=== PATIENT | male | born 1990 | race Caucasian/White ===

== ENCOUNTER 2020-06-04 20:31 | Observation (INO) | payer BC, OTHER ==
[2020-06-04] MEDS ORDERED: Ondansetron 4 MG/2 ML SDV IVPUSH ONE (21:14)
[2020-06-04] MEDS ORDERED: Sodium Chloride 0.9% 1,000 ML IV ONE (21:14)
--- NOTE | 2020-06-04 22:36 | EDM.PDOC ---
ED HPI GENERAL MEDICAL PROBLEM - General Chief Complaint: Abdominal Pain Stated Complaint: RIGHT SIDE PAIN/VOMITING Time Seen by Provider: 06/04/20 22:20 Source of Information: Reports: Patient, Family (spouse) History Limitations: Reports: No Limitations - History of Present Illness INITIAL COMMENTS - FREE TEXT/NARRATIVE: 29-year-old male presents to the ED complaining of diffuse right lower quadrant abdominal pain which he is able to localize very well. He states he started noticing right lower quadrant abdominal pain about 1500 hrs. today while at work. He could not wait to get home as he was feeling quite nauseated and made himself vomit x3 after he got home in the hopes that this would provide some relief of the discomfort. However the pain is persisted. He did have some the need around 1500 hrs. I believe some chicken from a fast food restaurant. He reports that he vomited this up when he got home. Patient has no previous history of any abdominal surgery. His pain came on fairly abruptly and he does feel some degree of pain referred up into his right flank. He did have a bowel movement when he got home as well. It contained no blood. He provided no relief of the pain either. Present he reports his pain to be 4 5 at rest and 7 or 8 with movement ,coughing or riding in a vehicle. Onset: Today, Sudden Onset Date: 06/04/20 Onset Time: 15:00 Duration: Hour(s):, Getting Worse Location: Reports: Abdomen Quality: Reports: Ache (Right lower quadrant abdominal pain with no radiation. Some deep aching pain made worse by coughing laughing sneezing or) Severity: Moderate (riding in a motor vehicle. Walking also makes it worse. 7- 8 out of 10 with movement . Pain is rated at 3 at rest.) Improves with: Reports: Rest Worsens with: Reports: Other, Movement Context: Reports: Other (Gradual versus sudden onset at 1500 hrs.). Denies: Activity, Exercise (Laughing sneezing and laughing make the pain worse), Lifting, Sick Contact, Trauma Associated Symptoms: Reports: Loss of Appetite (Nausea and he forced himself to vomit x3 of bilious material and initially some food.), Malaise, Nausea/Vomiting Treatments [employer]: Reports: Other (see below) (None.) Right Lower Abdomen Pain Score (Numeric/FACES): 8 - Related Data Allergies Allergy/AdvReac Type Severity Reaction Status Date / Time No Known Allergies Allergy Verified 06/04/20 21:02 Home Meds: Home Meds Escitalopram Oxalate [Lexapro] 30 mg PO DAILY 06/04/20 [History] Venlafaxine [Effexor] 37.5 mg PO BEDTIME 06/04/20 [History] Past Medical History - Past Health History Medical/Surgical History: Denies Medical/Surgical History Social & Family History - Tobacco Use Smoking Status *Q: Never Smoker - Living Situation & Occupation Living situation: Reports: Occupation: Employed ED ROS GENERAL - Review of Systems Review Of Systems: See Below Constitutional: Reports: Fatigue (Today.). Denies: Fever, Chills HEENT: Reports: No Symptoms Respiratory: Reports: No Symptoms Cardiovascular: Reports: No Symptoms Endocrine: Reports: No Symptoms GI/Abdominal: Reports: No Symptoms, Abdominal Pain, Decreased Appetite, Nausea (Does not feel like eating any supper. In fact he is nauseated.), Vomiting (Vomiting of bilious material x3 once he got home about 79 hours from work.). Denies: Constipation, Diarrhea : Reports: No Symptoms Musculoskeletal: Reports: No Symptoms Skin: Reports: No Symptoms Neurological: Reports: No Symptoms Psychiatric: Reports: No Symptoms Hematologic/Lymphatic: Reports: No Symptoms Immunologic: Reports: No Symptoms ED EXAM, GI/ABD - Physical Exam Exam: See Below Exam Limited By: No Limitations General Appearance: Alert, WD/WN, No Apparent Distress, Other (Temperature is 36.4 although he feels slightly warmer. Pulse 88 and sinus respiratory is 18 with sats of 100% on room air BP 12/01/1977) Eyes: Bilateral: Normal Appearance (No scleral icterus or blepharal pallor.) Throat/Mouth: Normal Inspection, Normal Lips, Normal Oropharynx Head: Atraumatic, Normocephalic Neck: Normal Inspection, Supple, Non-Tender, Full Range of Motion. No: Carotid Bruit, Lymphadenopathy (L), Lymphadenopathy (R), Thyromegaly Respiratory/Chest: No Respiratory Distress, Lungs Clear, Normal Breath Sounds, No Accessory Muscle Use Cardiovascular: Normal Peripheral Pulses, Regular Rate, Rhythm, No Edema, No Gallop, No Murmur, No Rub GI/Abdominal Exam: Normal Bowel Sounds, No Abnormal Bruit, No Mass (Lower quadrant of the abdomen), Pelvis Stable, Guarding, Rebound (Right lower quadrant rebound tenderness right lower quadrant with positive Rovsing sign and obturator sign.), Tender, Other (Male) Exam: No Hernia (Is consistent with acute appendicitis) Back Exam: Normal Inspection, Full Range of Motion. No: CVA Tenderness (L), CVA Tenderness (R) Extremities: Normal Inspection, Normal Range of Motion, Non-Tender, No Pedal Edema Neurological: Alert, Oriented, CN II-XII Intact, Normal Cognition Psychiatric: Normal Affect, Normal Mood Skin Exam: Warm, Dry, Intact, Normal Color, No Rash Course - Vital Signs Last Recorded V/S: Last Vital Signs Temp 36.4 C 06/04/20 21:03 Pulse 88 06/04/20 21:03 Resp 18 06/04/20 21:03 BP 125/78 06/04/20 21:03 Pulse Ox 100 06/04/20 21:03 - Orders/Labs/Meds Orders: Active Orders 24 hr Category Date Time Status Abdomen Pelvis w Cont [CT] Stat Exams 06/04/20 22:31 Taken Medication Orders Hydromorphone HCl (Dilaudid) 0.5 mg IVPUSH Q2H PRN PRN Reason: Pain Lactated Ringer's (Ringers, Lactated) 1,000 mls @ 125 mls/hr IV ASDIRECTED [facility] Last Admin: 06/05/20 01:44 Dose: 125 mls/hr Documented by: MARIANNE Metoclopramide HCl (Reglan) 10 mg IVPUSH Q6H PRN PRN Reason: Nausea Labs: Laboratory Tests 06/04/20 06/04/20 Range/Units 21:00 21:00 WBC 15.86 H (4.23-9.07) K/mm3 RBC 5.06 (4.63-6.08) M/mm3 Hgb 15.4 (13.7-17.5) gm/dl Hct 42.9 (40.1-51.0) % MCV 84.8 (79.0-92.2) fl MCH 30.4 (25.7-32.2) pg MCHC 35.9 H (32.2-35.5) g/dl RDW Std Deviation 37.1 (35.1-43.9) fL Plt Count 234 (163-337) K/mm3 MPV 10.4 (9.4-12.3) fl Neut % (Auto) 87.7 H (34.0-67.9) % Lymph % (Auto) 6.1 L (21.8-53.1) % [place] % (Auto) 5.7 (5.3-12.2) % Eos % (Auto) 0.3 L (0.8-7.0) Baso % (Auto) 0.1 (0.1-1.2) % Neut # (Auto) 13.91 H (1.78-5.38) K/mm3 Lymph # (Auto) 0.96 L (1.32-3.57) K/mm3 [place] # (Auto) 0.90 H (0.30-0.82) K/mm3 Eos # (Auto) 0.05 (0.04-0.54) K/mm3 Baso # (Auto) 0.02 (0.01-0.08) K/mm3 Manual Slide Review Abnormal smear Sodium 141 (136-145) mEq/L Potassium 3.9 (3.5-5.1) mEq/L Chloride 102 (98-107) mEq/L Carbon Dioxide 25 (21-32) mEq/L Anion Gap 17.9 H (5-15) BUN 20 H (7-18) mg/dL Creatinine 1.3 (0.7-1.3) mg/dL Est Cr Clr Drug Dosing 85.01 mL/min Estimated GFR (MDRD) > 60 (>60) mL/min BUN/Creatinine Ratio 15.4 (14-18) Glucose 105 (74-106) mg/dL Calcium 9.3 (8.5-10.1) mg/dL Total Bilirubin 0.9 (0.2-1.0) mg/dL AST 26 (15-37) U/L ALT 30 (16-63) U/L Alkaline Phosphatase 78 (46-116) U/L Total Protein 7.9 (6.4-8.2) g/dl Albumin 4.7 (3.4-5.0) g/dl Globulin 3.2 gm/dL Albumin/Globulin Ratio 1.5 (1-2) Meds: Medications Generic Name Dose Route Start Last Admin Trade Name Freq PRN Reason Stop Dose Admin Hydromorphone HCl 0.5 mg 06/05/20 01:33 Dilaudid IVPUSH Q2H PRN Pain Lactated Ringer's 1,000 mls @ 125 mls/hr 06/05/20 01:30 06/05/20 01:44 Ringers, Lactated IV 125 mls/hr ASDIRECTED PANDA Administration Metoclopramide HCl 10 mg 06/05/20 01:29 Reglan IVPUSH Q6H PRN Nausea Discontinued Medications Generic Name Dose Route Start Last Admin Trade Name Freq PRN Reason Stop Dose Admin Diphenhydramine HCl 25 mg 06/05/20 00:01 06/05/20 00:19 Benadryl IVPUSH 06/05/20 00:02 25 mg ONETIME ONE Administration Hydromorphone HCl 0.5 mg 06/04/20 22:37 06/04/20 23:05 Dilaudid IVPUSH 06/04/20 22:38 0.5 mg ONETIME ONE Administration Hydromorphone HCl 0.5 mg 06/05/20 00:01 06/05/20 00:20 Dilaudid IVPUSH 06/05/20 00:02 0.5 mg ONETIME ONE Administration Sodium Chloride 1,000 mls @ 999 mls/hr 06/04/20 21:14 06/04/20 21:24 Normal Saline IV 06/04/20 22:14 999 mls/hr ONETIME ONE Administration Lactated Ringer's 1,000 mls @ 500 mls/hr 06/04/20 22:45 06/04/20 23:11 Ringers, Lactated IV 500 mls/hr .BOLUS PANDA Administration Lactated Ringer's 1,000 mls @ 150 mls/hr 06/04/20 22:45 Ringers, Lactated IV ASDIRECTED PANDA Ertapenem 1 gm/ Sodium 50 mls @ 100 mls/hr 06/04/20 23:01 06/04/20 23:19 Chloride IV 06/04/20 23:30 100 mls/hr ONETIME ONE Administration Metoclopramide HCl 7.5 mg 06/05/20 00:01 06/05/20 00:18 Reglan IVPUSH 06/05/20 00:02 7.5 mg ONETIME ONE Administration Ondansetron HCl 4 mg 06/04/20 21:14 06/04/20 21:23 Zofran IVPUSH 06/04/20 21:15 4 mg ONETIME ONE Administration - Radiology Interpretation Free Text/Narrative:: 29-year-old male presents to the ED with acute onset of right lower quadrant abdominal pain gradually worsening since 1500 hrs. today. About 5:00 when he got home he started vomiting and vomited x3 of bilious emesis. He states he made himself vomit as he thought he would feel better. He has had some fever and some chills tonight as well. He did have 1 normal stool when he got home from work. Patient appreciates that it hurts to take a deep breath when sitt ing. Not noted when lying. He is able to localize the pain very well to his right lower quadrant. Minimal referral to his back. No history of renal colic. On examination he has bowel sounds still present normal. He has guarding in the right lower quadrant and has acute peritonitis clinically with a positive Rovsing sign and a positive obturator sign. Niccoli patient has acute appendicitis. Plan routine labs. IV will be normal saline at open. Then changed to LR at 150 mils per hour. Patient is received Zofran 4 mg IV for nausea relief. Currently rates his pain is 1-2 out of 10. - Re-Assessments/Exams Free Text/Narrative Re-Assessment/Exam: 06/04/20 22:34 White cell count is elevated at 15.86 with a left shift of 87.7% neutrophils on the auto differential. Hemoglobin is 15.4 with hematocrit of 42.9. MCV is normal at 84.8. Platelet counts 234,000. Slide reveals neutrophilia with lymphopenia and no bands cells. Sodium 141 with a potassium of 3.9. Chloride 102 with a bicarb of 25. Anion gap is mildly elevated at 17.9. BUN is 20 with a creatinine of 1.3. GFR is greater than 60. Glucose 105 with a calcium of 9.3. Liver function is normal. Total protein is 7.9 with an albumin fraction of 4.7. Patient will go to CT for CT of the abdomen with IV contrast only. Clinically he has acute appendicitis. 06/04/20 : 23:30: CT of the abdomen with IV contrast only has been completed. It reveals acute appendicitis with enlarged appendix dilated up to 12 mm and mild periappendiceal infiltrate. Vrad for read of the CT agrees with my assessment. Discussed the case with Dr. Braun on-call surgeon and he would like the patient admitted per observation status with plan to take him to the OR around 0600 hrs. a.m. This plan was discussed with the patient and his . I will be to give him Invanz 1 g IV now. Dilaudid 0.5 mg IV for abdominal pain. He is improved at this time after the Zofran given initially. 06/05/20 00:02 Patient is complaining of a bad headache compatible with his previous migraines. Plan will give him Reglan 7.5 mg IV with Benadryl 25 mg IV to prevent any dystonic reaction from interaction with venlafaxine and Zofran given earlier in the evening. Repeat Dilaudid 0.5 mg IV as well. Patient will be admitted shortly to the [facility] floor for observation status per Dr. Braun. Plan is to take him to the operating room around 0600 hrs. June 05 for laparoscopic appendectomy. Departure - Departure Time of Disposition: 00:01 Disposition: Refer to Observation Condition: Fair Clinical Impression: Right lower quadrant abdominal pain Acute appendicitis Qualifiers: Acute appendicitis type: with localized peritonitis Appendicitis gangrene presence: without gangrene Appendicitis perforation presence: without perforation Appendicitis abscess presence: without abscess Qualified Code(s): K35.30 - Acute appendicitis with localized peritonitis, without perforation or gangrene - Discharge Information *PRESCRIPTION DRUG MONITORING PROGRAM REVIEWED*: Not Applicable *COPY OF PRESCRIPTION DRUG MONITORING REPORT IN PATIENT CARISSA: Not Applicable Sepsis Event Note (ED) - Evaluation Sepsis Screening Result: No Definite Risk - Focused Exam Vital Signs: Vital Signs Temp Pulse Resp BP Pulse Ox 06/04/20 21:03 36.4 C 88 18 125/78 100 - My Orders Last 24 Hours: My Active Orders 06/04/20 22:31 Abdomen Pelvis w Cont [CT] Stat - Assessment/Plan Last 24 Hours: My Active Orders 06/04/20 22:31 Abdomen Pelvis w Cont [CT] Stat
[2020-06-04] MEDS ORDERED: HYDROmorphone 0.5 MG/0.5 ML Syringe IVPUSH ONE (22:37)
[2020-06-04] MEDS ORDERED: Lactated Ringers 1,000 ML IV SCH ×2 (22:45)
[2020-06-04] MEDS ORDERED: Ertapenem 1 GM in Sodium Chloride 0.9% 50 ML IV ONE (23:01)
[2020-06-05] MEDS ORDERED: diphenhydrAMINE 50 MG/ML SDV IVPUSH ONE (00:01)
[2020-06-05] MEDS ORDERED: HYDROmorphone 0.5 MG/0.5 ML Syringe IVPUSH ONE (00:01)
[2020-06-05] MEDS ORDERED: Metoclopramide 10 MG/2 ML SDV IVPUSH ONE (00:01)
[2020-06-05] MEDS ORDERED: Metoclopramide 10 MG/2 ML SDV IVPUSH PRN (01:29)
[2020-06-05] MEDS ORDERED: Lactated Ringers 1,000 ML IV SCH (01:30)
[2020-06-05] MEDS ORDERED: HYDROmorphone 0.5 MG/0.5 ML Syringe IVPUSH PRN ×2 (01:33→07:12)
--- NOTE | 2020-06-05 05:55 | PCM.PREANE ---
Preanesthetic Assessment - Procedure Proposed Procedure: Laparoscopic appendectomy - Anesthesia/Transfusion/Family Hx Anesthesia History: Prior Anesthesia Without Reaction Transfusion History: No Prior Transfusion(s) - Review of Systems General: No Symptoms Pulmonary: No Symptoms Cardiovascular: No Symptoms Gastrointestinal: No Symptoms Neurological: No Symptoms Other: Reports: Anxiety - Physical Assessment NPO Status Date: 06/04/20 NPO Status Time: 15:00 Vital Signs: Last Vital Signs Temp 97.5 F 06/04/20 21:03 Pulse 88 06/04/20 21:03 Resp 18 06/04/20 21:03 BP 125/78 06/04/20 21:03 Pulse Ox 100 06/04/20 21:03 Height: 1.78 m Weight: 84.776 kg ASA Class: 1E Mental Status: Alert & Oriented x3 Airway Class: Mallampati = 2 Dentition: Reports: Normal Dentition Thyro-Mental Finger Breadths: 3 Mouth Opening Finger Breadths: 3 ROM/Head Extension: Full Lungs: Clear to Auscultation, Normal Respiratory Effort Cardiovascular: Regular Rate, Regular Rhythm - Lab Values: Laboratory Last Values WBC 15.86 K/mm3 (4.23-9.07) H 06/04/20 21:00 RBC 5.06 M/mm3 (4.63-6.08) 06/04/20 21:00 Hgb 15.4 gm/dl (13.7-17.5) 06/04/20 21:00 Hct 42.9 % (40.1-51.0) 06/04/20 21:00 MCV 84.8 fl (79.0-92.2) 06/04/20 21:00 MCH 30.4 pg (25.7-32.2) 06/04/20 21:00 MCHC 35.9 g/dl (32.2-35.5) H 06/04/20 21:00 RDW Std Deviation 37.1 fL (35.1-43.9) 06/04/20 21:00 Plt Count 234 K/mm3 (163-337) 06/04/20 21:00 MPV 10.4 fl (9.4-12.3) 06/04/20 21:00 Neut % (Auto) 87.7 % (34.0-67.9) H 06/04/20 21:00 Lymph % (Auto) 6.1 % (21.8-53.1) L 06/04/20 21:00 [place] % (Auto) 5.7 % (5.3-12.2) 06/04/20 21:00 Eos % (Auto) 0.3 (0.8-7.0) L 06/04/20 21:00 Baso % (Auto) 0.1 % (0.1-1.2) 06/04/20 21:00 Neut # (Auto) 13.91 K/mm3 (1.78-5.38) H 06/04/20 21:00 Lymph # (Auto) 0.96 K/mm3 (1.32-3.57) L 06/04/20 21:00 [place] # (Auto) 0.90 K/mm3 (0.30-0.82) H 06/04/20 21:00 Eos # (Auto) 0.05 K/mm3 (0.04-0.54) 06/04/20 21:00 Baso # (Auto) 0.02 K/mm3 (0.01-0.08) 06/04/20 21:00 Manual Slide Review Abnormal smear 06/04/20 21:00 Sodium 141 mEq/L (136-145) 06/04/20 21:00 Potassium 3.9 mEq/L (3.5-5.1) 06/04/20 21:00 Chloride 102 mEq/L (98-107) 06/04/20 21:00 Carbon Dioxide 25 mEq/L (21-32) 06/04/20 21:00 Anion Gap 17.9 (5-15) H 06/04/20 21:00 BUN 20 mg/dL (7-18) H 06/04/20 21:00 Creatinine 1.3 mg/dL (0.7-1.3) 06/04/20 21:00 Est Cr Clr Drug Dosing 85.01 mL/min 06/04/20 21:00 Estimated GFR (MDRD) > 60 mL/min (>60) 06/04/20 21:00 BUN/Creatinine Ratio 15.4 (14-18) 06/04/20 21:00 Glucose 105 mg/dL (74-106) 06/04/20 21:00 Calcium 9.3 mg/dL (8.5-10.1) 07/29/20 21:00 Total Bilirubin 0.9 mg/dL (0.2-1.0) 06/04/20 21:00 AST 26 U/L (15-37) 06/04/20 21:00 ALT 30 U/L (16-63) 06/04/20 21:00 Alkaline Phosphatase 78 U/L (46-116) 06/04/20 21:00 Total Protein 7.9 g/dl (6.4-8.2) 06/04/20 21:00 Albumin 4.7 g/dl (3.4-5.0) 06/04/20 21:00 Globulin 3.2 gm/dL 06/04/20 21:00 Albumin/Globulin Ratio 1.5 (1-2) 06/04/20 21:00 SARS Virus RNA (PCR) Negative (NEGATIVE) 06/04/20 23:30 - Allergies Allergies/Adverse Reactions: Allergies Allergy/AdvReac Type Severity Reaction Status Date / Time No Known Allergies Allergy Verified 06/04/20 21:02 - Acknowledgements Anesthesia Type Planned: General Anesthesia Pt an Appropriate Candidate for the Planned Anesthesia: Yes Alternatives and Risks of Anesthesia Discussed w Pt/Guardian: Yes Pt/Guardian Understands and Agrees with Anesthesia Plan: Yes PreAnesthesia Questionnaire - Past Health History Medical/Surgical History: Denies Medical/Surgical History HEENT History: Reports: Impaired Vision Neurological History: Reports: Migraines Psychiatric History: Reports: Anxiety - Infectious Disease History Infectious Disease History: Reports: Chicken Pox, Influenza - Past Surgical History HEENT Surgical History: Reports: None Neurological Surgical History: Reports: None - SUBSTANCE USE Smoking Status *Q: Never Smoker Second Hand Smoke Exposure: No Recreational Drug Use History: No - HOME MEDS Home Medications: Home Meds Escitalopram Oxalate [Lexapro] 30 mg PO DAILY 06/04/20 [History] Venlafaxine [Effexor] 37.5 mg PO BEDTIME 06/04/20 [History] - CURRENT (IN HOUSE) MEDS Current Meds: Current Medications Hydromorphone HCl (Dilaudid) 0.5 mg IVPUSH Q2H PRN PRN Reason: Pain Lactated Ringer's (Ringers, Lactated) 1,000 mls @ 125 mls/hr IV ASDIRECTED PANDA Last Admin: 06/05/20 01:44 Dose: 125 mls/hr Documented by: Metoclopramide HCl (Reglan) 10 mg IVPUSH Q6H PRN PRN Reason: Nausea Discontinued Medications Diphenhydramine HCl (Benadryl) 25 mg IVPUSH ONETIME ONE Stop: 06/05/20 00:02 Last Admin: 06/05/20 00:19 Dose: 25 mg Documented by: Hydromorphone HCl (Dilaudid) 0.5 mg IVPUSH ONETIME ONE Stop: 06/04/20 22:38 Last Admin: 06/04/20 23:05 Dose: 0.5 mg Documented by: Hydromorphone HCl (Dilaudid) 0.5 mg IVPUSH ONETIME ONE Stop: 06/05/20 00:02 Last Admin: 06/05/20 00:20 Dose: 0.5 mg Documented by: Sodium Chloride (Normal Saline) 1,000 mls @ 999 mls/hr IV ONETIME ONE Stop: 06/04/20 22:14 Last Admin: 06/04/20 21:24 Dose: 999 mls/hr Documented by: Lactated Ringer's (Ringers, Lactated) 1,000 mls @ 500 mls/hr IV .BOLUS PANDA Last Admin: 06/04/20 23:11 Dose: 500 mls/hr Documented by: Lactated Ringer's (Ringers, Lactated) 1,000 mls @ 150 mls/hr IV ASDIRECTED PANDA Ertapenem 1 gm/ Sodium (Chloride) 50 mls @ 100 mls/hr IV ONETIME ONE Stop: 06/04/20 23:30 Last Admin: 06/04/20 23:19 Dose: 100 mls/hr Documented by: Metoclopramide HCl (Reglan) 7.5 mg IVPUSH ONETIME ONE Stop: 06/05/20 00:02 Last Admin: 06/05/20 00:18 Dose: 7.5 mg Documented by: Ondansetron HCl (Zofran) 4 mg IVPUSH ONETIME ONE Stop: 06/04/20 21:15 Last Admin: 06/04/20 21:23 Dose: 4 mg Documented by:
--- NOTE | 2020-06-05 06:05 | PCM.HP.2 ---
H&P History of Present Illness - General Date of Service: 06/05/20 Admit Problem/Dx: Admission Diagnosis/Problem Admission Diagnosis/Problem Appendicitis Source of Information: Patient History Limitations: Reports: No Limitations - History of Present Illness Initial Comments - Free Text/Narative: Patient started having RLQ pain yesterday afternoon as he was driving back from work. Pain located in the RLQ, non-radiating. associated with nausea and vomiting. He vomited his lung around 3 pm. No fevers or chills. In the ED wbc was 15, CT confirmed acute appendicitis. Onset of Symptoms: Reports: Sudden Duration of Symptoms: Reports: Hour(s): (16), Getting Worse Location: Reports: Abdomen (RLQ) Quality: Reports: Sharp Severity: Moderate Improves with: Reports: Immobilization Worsens with: Reports: Movement Associated Symptoms: Reports: Nausea/Vomiting Right Lower Abdomen Pain Score (Numeric/FACES): 8 - Related Data Allergies/Adverse Reactions: Allergies Allergy/AdvReac Type Severity Reaction Status Date / Time No Known Allergies Allergy Verified 06/04/20 21:02 Home Medications: Home Meds Escitalopram Oxalate [Lexapro] 30 mg PO DAILY 06/04/20 [History] Venlafaxine [Effexor] 37.5 mg PO BEDTIME 06/04/20 [History] Past Medical History - Past Health History Medical/Surgical History: Denies Medical/Surgical History HEENT History: Reports: Impaired Vision Neurological History: Reports: Migraines Psychiatric History: Reports: Anxiety - Infectious Disease History Infectious Disease History: Reports: Chicken Pox, Influenza - Past Surgical History HEENT Surgical History: Reports: None Neurological Surgical History: Reports: None Social & Family History - Tobacco Use Smoking Status *Q: Never Smoker Second Hand Smoke Exposure: No - Caffeine Use Caffeine Use: Reports: Energy Drinks - Recreational Drug Use Recreational Drug Use: No - Living Situation & Occupation Living situation: Reports: Occupation: Employed H&P Review of Systems - Review of Systems: Review Of Systems: See Below General: Reports: No Symptoms HEENT: Reports: No Symptoms Pulmonary: Reports: No Symptoms Cardiovascular: Reports: No Symptoms Gastrointestinal: Reports: Abdominal Pain Genitourinary: Reports: No Symptoms Musculoskeletal: Reports: No Symptoms Skin: Reports: No Symptoms Psychiatric: Reports: No Symptoms Exam - Exam Exam: See Below - Vital Signs Vital Signs: Last Vital Signs Temp 97.5 F 06/04/20 21:03 Pulse 88 06/04/20 21:03 Resp 18 06/04/20 21:03 BP 125/78 06/04/20 21:03 Pulse Ox 100 06/04/20 21:03 Weight: 84.776 kg - Exam General: Alert, Oriented, Cooperative Cardiovascular: Regular Rate, Regular Rhythm, Normal S1, Normal S2 GI/Abdominal Exam: Soft, No Organomegaly, No Distention, No Mass, Tender (RLQ) - Patient Data Lab Results Last 24 hrs: Laboratory Results - last 24 hr 06/04/20 06/04/20 06/04/20 Range/Units 21:00 21:00 23:30 WBC 15.86 H (4.23-9.07) K/mm3 RBC 5.06 (4.63-6.08) M/mm3 Hgb 15.4 (13.7-17.5) gm/dl Hct 42.9 (40.1-51.0) % MCV 84.8 (79.0-92.2) fl MCH 30.4 (25.7-32.2) pg MCHC 35.9 H (32.2-35.5) g/dl RDW Std Deviation 37.1 (35.1-43.9) fL Plt Count 234 (163-337) K/mm3 MPV 10.4 (9.4-12.3) fl Neut % (Auto) 87.7 H (34.0-67.9) % Lymph % (Auto) 6.1 L (21.8-53.1) % [place] % (Auto) 5.7 (5.3-12.2) % Eos % (Auto) 0.3 L (0.8-7.0) Baso % (Auto) 0.1 (0.1-1.2) % Neut # (Auto) 13.91 H (1.78-5.38) K/mm3 Lymph # (Auto) 0.96 L (1.32-3.57) K/mm3 Barnwell # (Auto) 0.90 H (0.30-0.82) K/mm3 Eos # (Auto) 0.05 (0.04-0.54) K/mm3 Baso # (Auto) 0.02 (0.01-0.08) K/mm3 Manual Slide Review Abnormal smear Sodium 141 (136-145) mEq/L Potassium 3.9 (3.5-5.1) mEq/L Chloride 102 (98-107) mEq/L Carbon Dioxide 25 (21-32) mEq/L Anion Gap 17.9 H (5-15) BUN 20 H (7-18) mg/dL Creatinine 1.3 (0.7-1.3) mg/dL Est Cr Clr Drug Dosing 85.01 mL/min Estimated GFR (MDRD) > 60 (>60) mL/min BUN/Creatinine Ratio 15.4 (14-18) Glucose 105 (74-106) mg/dL Calcium 9.3 (8.5-10.1) mg/dL Total Bilirubin 0.9 (0.2-1.0) mg/dL AST 26 (15-37) U/L ALT 30 (16-63) U/L Alkaline Phosphatase 78 (46-116) U/L Total Protein 7.9 (6.4-8.2) g/dl Albumin 4.7 (3.4-5.0) g/dl Globulin 3.2 gm/dL Albumin/Globulin Ratio 1.5 (1-2) SARS Virus RNA (PCR) Negative (NEGATIVE) Result Diagrams: 06/04/20 21:00 06/04/20 21:00 Sepsis Event Note - Evaluation Sepsis Screening Result: No Definite Risk - Focused Exam Vital Signs: Vital Signs Temp Pulse Resp BP Pulse Ox 06/04/20 21:03 97.5 F 88 18 125/78 100 Date Exam was Performed: 06/05/20 Time Exam was Performed: 06:00 Problem List Initiated/Reviewed/Updated: No Orders Last 24hrs: Active Orders 24 hr Category Date Time Status Patient Status [ADT] Routine ADT 06/04/20 23:21 Active Up ad Shireen [RC] ASDIRECTED Care 06/05/20 01:22 Active NPO Now [Nothing per Oral Now Diet] [DIET] Diet 06/05/20 Breakfast Active Abdomen Pelvis w Cont [CT] Stat Exams 06/04/20 22:31 Taken HYDROmorphone [Dilaudid] Med 06/05/20 01:33 Active 0.5 mg IVPUSH Q2H PRN Lactated Ringers [Ringers, Lactated] 1,000 ml Med 06/05/20 01:30 Active IV ASDIRECTED Metoclopramide [Reglan] Med 06/05/20 01:29 Active 10 mg IVPUSH Q6H PRN Schedule Procedure [COMM] Timed Oth 06/05/20 04:50 Ordered Code Status [Resuscitation Status] Routine Resus Stat 06/05/20 01:12 Ordered Medication Orders Hydromorphone HCl (Dilaudid) 0.5 mg IVPUSH Q2H PRN PRN Reason: Pain Lactated Ringer's (Ringers, Lactated) 1,000 mls @ 125 mls/hr IV ASDIRECTED PANDA Last Admin: 06/05/20 01:44 Dose: 125 mls/hr Documented by: MARIANNE Metoclopramide HCl (Reglan) 10 mg IVPUSH Q6H PRN PRN Reason: Nausea Assessment/Plan Comment:: Patient has acute appendicitis. I recommended we pursue appendectomy. Patient agreed. I discussed with his risks, benefits and alternatives. Risks discussed included infection, bleeding, injury to adjacent structures. Questions were answered and informed consent was obtained. - Lap appy now - extended recovery post op - can go home once tolerating clears - follow up in 2 weeks post op
[2020-06-05] MEDS ORDERED: Rocuronium 50 MG/5 ML Vial ONE (06:10)
[2020-06-05] MEDS ORDERED: Propofol 200 MG/20 ML SDV ONE (06:11)
[2020-06-05] MEDS ORDERED: fentaNYL 250 MCG/5 ML SDV ONE (06:12)
[2020-06-05] MEDS ORDERED: Midazolam 1 MG/ML 2 ML SDV ONE (06:12)
[2020-06-05] MEDS ORDERED: Lidocaine 1% 4 ML ONE (06:12)
[2020-06-05] MEDS ORDERED: Lidocaine 1% 50 ML MDV ONE (06:20)
[2020-06-05] MEDS ORDERED: Succinylcholine/Sod PF 100 MG/5 ML SYRINGE IV ONE (06:21)
[2020-06-05] MEDS ORDERED: Atropine 0.4 MG/ML SDV ONE (07:02)
[2020-06-05] MEDS ORDERED: fentaNYL 100 MCG/2 ML SDV IVPUSH PRN (07:12)
[2020-06-05] MEDS ORDERED: Ondansetron 4 MG/2 ML SDV ONE (07:13)
[2020-06-05] MEDS ORDERED: HYDROmorphone 0.5 MG/0.5 ML Syringe ONE (07:16)
[2020-06-05] MEDS ORDERED: Lactated Ringers 1,000 ML ONE (07:48)
[2020-06-05] MEDS ORDERED: Ketorolac 30 MG/ML SDV IVPUSH ONE (07:53)
--- NOTE | 2020-06-05 07:58 | PCM.POSTAN ---
POST ANESTHESIA ASSESSMENT - MENTAL STATUS Mental Status: Alert, Oriented - VITAL SIGNS Vital Signs: Last Vital Signs Temp 97.4 F 06/05/20 07:40 Pulse 90 06/05/20 07:40 Resp 18 06/05/20 07:40 BP 120/67 06/05/20 07:40 Pulse Ox 97 06/05/20 07:40 - RESPIRATORY Respiratory Status: Respiratory Rate WNL, Airway Patent, O2 Saturation Stable, Supplemental Oxygen - CARDIOVASCULAR CV Status: Pulse Rate WNL, Blood Pressure Stable - GASTROINTESTINAL GI Status: No Symptoms - PAIN Pain Score: 3 - POST OP HYDRATION Hydration Status: Adequate & Stable
--- NOTE | 2020-06-05 08:56 | OR ---
DATE OF OPERATION: 06/05/2020 SURGEON: Jimena Braun MD PREOPERATIVE DIAGNOSIS: Acute appendicitis. POSTOPERATIVE DIAGNOSIS: Acute appendicitis. OPERATION PERFORMED: Laparoscopic appendectomy. ANESTHESIA: General endotracheal. IMMEDIATE COMPLICATIONS: None. ESTIMATED BLOOD LOSS: 20 mL. INDICATION AND CONSENT: The patient is a 29-year-old male who started having right lower quadrant pain yesterday afternoon as he was driving home from work. This was associated with nausea and vomiting. The patient presented to the emergency department due to worsening pain last night. White count was 15. CT scan confirmed acute appendicitis. I was asked to see the patient. On my exam, he had right lower quadrant pain, and I reviewed the CT and imaging and confirmed the diagnosis. I offered the patient laparoscopic appendectomy, possible open. We discussed risks, benefits, and alternatives. The patient agreed to proceed with the procedure and informed consent was obtained. DESCRIPTION OF PROCEDURE: The patient was taken to the operating room, placed in supine position, and padded well. The patient had already received preop antibiotics in the emergency department. Therefore, none was needed. General anesthesia was induced, and the patient's abdomen was prepped and draped in the usual sterile fashion. Formal time-out was performed prior to the start of the procedure. We began the procedure by injecting local anesthetic in the infraumbilical position. Incision was made. Then, while retracting the umbilical stalk, Veress needle was introduced into the abdomen. The abdomen was insufflated to 15 mmHg. A 12 Optiview trocar was introduced into the abdomen under direct visualization with a 5 scope. Abdomen was inspected. There was no injury from the Veress needle or trocar insertion. Two additional 5 mm trocars were placed under direct visualization, one in the left lower quadrant, another one in the suprapubic position. The patient was placed in the slight Trendelenburg in left- sided down position and we began the procedure. We found the appendix in the right lower quadrant. Distal 2/3 of the appendix was visibly inflamed and the appendix was retracted anteriorly. A window in the appendiceal base was made and the appendix was transected with a 55 mm blue load Endo-LUCY stapler. Then, the mesoappendix was transected with a vascular white load using Endo-LUCY stapler. There was immediate bleeding from mesoappendix that was pulsatile. This was controlled with 2 clips. There was about 10 to 20 mL of blood that was in the right lower quadrant. This was suctioned out using a suction cnc grinder device. Once this was done, the appendix was placed into the EndoCatch bag, removed through the infraumbilical port, and the abdomen was reinspected. There were no other injuries. Bleeding was completely stopped. The infraumbilical incision was closed at the fascial level with 0 Vicryl stitch using Tristin-William device. Then, skin at all 3 incisions was closed with 4-0 Monocryl stitches and Dermabond was applied. This marked the end of the procedure. At the end of the procedure, all instruments, sharps, and sponges were counted and found to be correct x2. The patient was awoken from general anesthesia and taken to the recovery area in stable condition. MMANASTASIIA /[id number] AMEYA
--- NOTE | 2020-06-05 09:26 | CT ---
CT abdomen and pelvis Technique: Multiple axial sections were obtained from above the dome of the diaphragm inferiorly through the pubic symphysis. Intravenous contrast was utilized. No oral contrast has been given. Delayed images were obtained through the bladder. Comparison:4 no prior abdominal imaging is available. Findings: Visualized lung bases show nothing acute. Liver contains no focal parenchymal abnormality. Spleen appears within normal limits. Adrenal glands show no nodule. Kidneys show symmetric contrast enhancement. No hydronephrosis or mass is seen. Pancreas appears normal. Gallbladder contains no calcified gallstones. Aorta shows no aneurysm. No retroperitoneal adenopathy or mesenteric abnormalities are seen. Appendix is seen which shows mild wall thickening and minimal surrounding inflammatory change. Findings are suspicious for early appendicitis. No additional pelvic mass or adenopathy is seen. No free fluid is seen. No other inflammatory change is appreciated. Delayed images shows contrast within the distal ureters as well as within the bladder. Bone window settings were reviewed. No acute osseous finding is appreciated. 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 Impression: 1. Findings suspicious for early appendicitis. 2. No other acute abnormality is identified on CT study of the abdomen and pelvis. Diagnostic code #5 This report was dictated in MDT I agree with preliminary report from [facility], finalized on 06/05/20, 12:04 AM Central Daylight Time
[2020-06-05] MEDS ORDERED: Acetaminophen 325 MG Tab PO PRN (10:42)
--- NOTE | 2020-06-10 09:34 | PCM.DCSUM1 ---
Discharge Summary - Hospital Course Free Text/Narrative:: patient had acute appendicitis. He underwent laparoscopic appendectomy. Was discharged in stable condition. Diagnosis: Stroke: No - Discharge Data Discharge Date: 06/05/20 Discharge Disposition: Home, Self-Care 01 Condition: Good - Referral to Home Health Primary Care Physician: Ayaz Sprague Jr, MD - Patient Instructions Diet: Heart Healthy Diet Activity: No Lifting Over 20 Pounds Driving: Do Not Drive Showering/Bathing: May Shower Wound/Incision Care: Keep Operative Site/Wound Site Clean and Dry Notify Provider of: Fever, Increased Pain, Swelling and Redness, Drainage, Nausea and/or Vomiting Other/Special Instructions: - Take Tylenol/Ibuprofen for pain. If pain worsens, take prescribed opioids. - Use stool softener to avoid constipation. - Avoid lifting more than 20lb for 2 weeks - Discharge Plan *PRESCRIPTION DRUG MONITORING PROGRAM REVIEWED*: Not Applicable *COPY OF PRESCRIPTION DRUG MONITORING REPORT IN PATIENT CARISSA: Not Applicable Prescriptions/Med Rec: Docusate Sodium [Colace] 100 mg PO BID 10 Days #20 capsule Hydrocodone/Acetaminophen [Brogan 5-325 Tablet] 1 each PO Q8H 3 Days #12 tablet Home Medications: Home Meds Escitalopram Oxalate [Lexapro] 30 mg PO DAILY 06/04/20 [History] Venlafaxine [Effexor] 37.5 mg PO BEDTIME 06/04/20 [History] Docusate Sodium [Colace] 100 mg PO BID 10 Days #20 capsule 06/05/20 [Rx] Hydrocodone/Acetaminophen [Brogan 5-325 Tablet] 1 each PO Q8H 3 Days #12 tablet 06/05/20 [Rx] Oxygen Therapy Mode: Room Air Patient Handouts: Laparoscopic Appendectomy, Adult, Care After, [id number], Appendicitis, Adult, [id number] Forms: ED Department Discharge Referrals: Ayaz Sprague Jr, MD [Primary Care Provider] - 06/19/20 8:40 am (Please follow up with Farheen Mendoza on at 0840am.) - Discharge Summary/Plan Comment DC Time >30 min.: No - General Info Date of Service: 06/05/20 Admission Dx/Problem (Free Text: Admission Diagnosis/Problem Admission Diagnosis/Problem Appendicitis Functional Status: Reports: Pain Controlled - Review of Systems General: Reports: No Symptoms HEENT: Reports: No Symptoms Pulmonary: Reports: No Symptoms Cardiovascular: Reports: No Symptoms Gastrointestinal: Reports: Abdominal Pain Genitourinary: Reports: No Symptoms Musculoskeletal: Reports: No Symptoms - Patient Data Vitals - Most Recent: Last Vital Signs Temp 98.4 F 06/05/20 08:40 Pulse 56 L 06/05/20 11:17 Resp 17 06/05/20 08:40 BP 133/72 06/05/20 11:17 Pulse Ox 97 06/05/20 11:17 Weight - Most Recent: 84.776 kg Med Orders - Current: Current Medications Discontinued Medications Acetaminophen (Tylenol) 650 mg PO Q4H PRN PRN Reason: Pain Last Admin: 06/05/20 10:52 Dose: 650 mg Documented by: Atropine Sulfate (Atropine) Confirm Administered Dose 0.4 mg .ROUTE .STK-MED ONE Stop: 06/05/20 07:03 Diphenhydramine HCl (Benadryl) 25 mg IVPUSH ONETIME ONE Stop: 06/05/20 00:02 Last Admin: 06/05/20 00:19 Dose: 25 mg Documented by: Fentanyl (Sublimaze) Confirm Administered Dose 250 mcg .ROUTE .STK-MED ONE Stop: 06/05/20 06:13 Fentanyl (Sublimaze) 100 mcg IVPUSH Q5M PRN PRN Reason: Pain Stop: 06/05/20 18:00 Last Admin: 06/05/20 08:10 Dose: 50 mcg Documented by: Hydromorphone HCl (Dilaudid) 0.5 mg IVPUSH ONETIME ONE Stop: 06/04/20 22:38 Last Admin: 06/04/20 23:05 Dose: 0.5 mg Documented by: Hydromorphone HCl (Dilaudid) 0.5 mg IVPUSH ONETIME ONE Stop: 06/05/20 00:02 Last Admin: 06/05/20 00:20 Dose: 0.5 mg Documented by: Hydromorphone HCl (Dilaudid) 0.5 mg IVPUSH Q2H PRN PRN Reason: Pain Hydromorphone HCl (Dilaudid) 0.5 mg IVPUSH Q10M PRN PRN Reason: Pain (severe 7-10) Stop: 06/05/20 18:00 Hydromorphone HCl (Dilaudid) Confirm Administered Dose 0.5 mg .ROUTE .STK-MED ONE Stop: 06/05/20 07:17 Sodium Chloride (Normal Saline) 1,000 mls @ 999 mls/hr IV ONETIME ONE Stop: 06/04/20 22:14 Last Admin: 06/04/20 21:24 Dose: 999 mls/hr Documented by: Lactated Ringer's (Ringers, Lactated) 1,000 mls @ 500 mls/hr IV .BOLUS PANDA Last Admin: 06/04/20 23:11 Dose: 500 mls/hr Documented by: Lactated Ringer's (Ringers, Lactated) 1,000 mls @ 150 mls/hr IV ASDIRECTED PANDA Ertapenem 1 gm/ Sodium (Chloride) 50 mls @ 100 mls/hr IV ONETIME ONE Stop: 06/04/20 23:30 Last Admin: 06/04/20 23:19 Dose: 100 mls/hr Documented by: Lactated Ringer's (Ringers, Lactated) 1,000 mls @ 125 mls/hr IV ASDIRECTED PANDA Last Admin: 06/05/20 01:44 Dose: 125 mls/hr Documented by: Lidocaine HCl (Xylocaine-Mpf 1%) Confirm Administered Dose 4 mls @ as directed .ROUTE .STK-MED ONE Stop: 06/05/20 06:13 Lactated Ringer's (Ringers, Lactated) Confirm Administered Dose 1,000 mls @ as directed .ROUTE .STK-MED ONE Stop: 06/05/20 07:49 Ketorolac Tromethamine (Toradol) 30 mg IVPUSH ONETIME ONE Stop: 06/05/20 07:54 Last Admin: 06/05/20 08:00 Dose: 30 mg Documented by: Lidocaine HCl (Xylocaine 1%) Confirm Administered Dose 50 ml .ROUTE .STK-MED ONE Stop: 06/05/20 06:21 Last Admin: 06/05/20 06:57 Dose: 37 ml Documented by: Metoclopramide HCl (Reglan) 7.5 mg IVPUSH ONETIME ONE Stop: 06/05/20 00:02 Last Admin: 06/05/20 00:18 Dose: 7.5 mg Documented by: Metoclopramide HCl (Reglan) 10 mg IVPUSH Q6H PRN PRN Reason: Nausea Midazolam HCl (Versed 1 Mg/Ml) Confirm Administered Dose 4 mg .ROUTE .STK-MED ONE Stop: 06/05/20 06:13 Ondansetron HCl (Zofran) 4 mg IVPUSH ONETIME ONE Stop: 06/04/20 21:15 Last Admin: 06/04/20 21:23 Dose: 4 mg Documented by: Ondansetron HCl (Zofran) Confirm Administered Dose 8 mg .ROUTE .STK-MED ONE Stop: 06/05/20 07:14 Propofol (Diprivan 20 Ml) Confirm Administered Dose 200 mg .ROUTE .STK-MED ONE Stop: 06/05/20 06:12 Rocuronium Silver Plume (Zemuron) Confirm Administered Dose 50 mg .ROUTE .STK-MED ONE Stop: 06/05/20 06:11 - Exam General: Reports: Alert, Oriented, Cooperative Lungs: Reports: Clear to Auscultation, Normal Respiratory Effort Cardiovascular: Reports: Regular Rate, Regular Rhythm, No Murmurs GI/Abdominal Exam: Soft, No Organomegaly, No Distention, Tender (RLQ and perincisional)
== END 2020-06-05 12:08 | disposition home or self-care (01) ==
LOC: JD.ED 20:31 → JD.MS 23:21
PROVIDERS: ADMIT Surgery; ATTEND Surgery
DX: K35.33 Acute appendicitis with perforation, localized peritonitis, and gangrene, with abscess (principal); F41.9 Anxiety disorder, unspecified; Z11.59 Encounter for screening for other viral diseases; Z79.899 Other long term (current) drug therapy
CPT/HCPCS: 36415; 44970; 74177; 80053; 85025; 87635; 96361; 96365; 96375; 96376; 99285; A9270; G0378; J0330; J0461; J1170; J1200; J1335; J1885; J2001; J2250; J2405; J2704; J2765; J3010; J7030; J7050; J7120; 00840; U0002

== ENCOUNTER 2024-12-04 15:22 | Emergency (ER) | payer BC ==
[2024-12-04] MEDS: Sodium Chloride 0.9% 1,000 ML IV SCH (17:54)
[2024-12-04] MEDS: Ondansetron 4 MG/2 ML SDV IVPUSH ONE (17:55)
[2024-12-04 17:59] LABS: BASOPHILS PERCENT AUTO 0.3 % (0.0-1.0); EOSINOPHILS PERCENT AUTO 0.1 % (0.0-6.0); HEMATOCRIT 42.7 % (42.0-52.0); HEMOGLOBIN 15.4 gm/dl (14.0-18.0); IMMATURE GRAN ABSOLUTE AUTO 0.01 K/mm3 (0.00-0.05); IMMATURE GRAN PERCENT AUTO 0.1 % (0.0-0.4); LYMPHOCYTES ABSOLUTE AUTO 0.7 K/mm3 (1.0-4.8); LYMPHOCYTES PERCENT AUTO 9.6 % (24.0-44.0); MEAN CORPUSCULAR HEMOGLOBIN 30.1 pg (28.0-32.0); MEAN CORPUSCULAR HGB CONC 36.1 g/dl (32.0-36.0); MEAN CORPUSCULAR VOLUME 83.4 fl (83.0-99.0); MEAN PLATELET VOLUME 9.9 fl (9.4-12.4); MONOCYTES ABSOLUTE AUTO 0.6 K/mm3 (0.0-0.8); MONOCYTES PERCENT AUTO 7.6 % (0.0-8.0); NEUTROPHILS ABSOLUTE AUTO 6.2 K/mm3 (1.8-7.7); NEUTROPHILS PERCENT AUTO 82.3 % (41.0-71.0); PLATELET COUNT,PLT 199 K/mm3 (150-400); RED BLOOD CELL COUNT 5.12 M/mm3 (4.52-5.90); WHITE BLOOD CELL COUNT,WBC 7.52 K/mm3 (3.9-11.3)
[2024-12-04] MEDS: Ketorolac 15 MG/ML SDV IVPUSH ONE (18:15)
[2024-12-04 18:41] LABS: A/G RATIO 1.2 (1-2); ALBUMIN 4.2 g/dl (3.4-5.0); ANION GAP 16.7 (5-15); BILIRUBIN TOTAL 1.2 mg/dL (0.2-1.0); BUN/CREATININE RATIO 15.8 (14-18); CALCIUM 9.1 mg/dL (8.5-10.1); CREATININE 1.2 mg/dL (0.7-1.3); EST CRCL DRUG DOSING (CG) 87.87 mL/min; POTASSIUM,K 3.7 mEq/L (3.5-5.1); PROTEIN TOTAL,TP 7.8 g/dl (6.4-8.2)
[2024-12-04] MEDS: Sodium Chloride 0.9% 1,000 ML ONE (18:58)
[2024-12-04] MEDS: Ketorolac 30 MG/ML SDV IM ONE (18:59)
== END 2024-12-04 19:57 | disposition home or self-care (01) ==
LOC: JD.ED 15:22
DX: J06.9 Acute upper respiratory infection, unspecified (principal)
CPT/HCPCS: 36415; 80053; 85025; 87428; 96361; 96374; 96375; 99284; J1885; J2405; J7030; 99283